=== PATIENT | male | born 1945 | race Caucasian/White ===

== ENCOUNTER 2017-10-28 11:40 | Outpatient (CLI) | payer MEDICARE, BC | END 2017-10-28 11:41 | disposition home or self-care (01) | LOC: BICRAD 11:40 | PROVIDERS: ATTEND Physician Assistant Surgical | DX: M54.2 Cervicalgia (principal); R51 Headache; M50.322 Other cervical disc degeneration at C5-C6 level; M99.81 Other biomechanical lesions of cervical region; M47.892 Other spondylosis, cervical region; M46.92 Unspecified inflammatory spondylopathy, cervical region; I65.22 Occlusion and stenosis of left carotid artery; J34.89 Other specified disorders of nose and nasal sinuses | CPT/HCPCS: 70553; 72050; 72141; 82565; A9579 ==

== ENCOUNTER 2023-08-13 08:26 | Day surgery (SDC) | payer MEDICARE, BC ==
[2023-08-05 10:27] VITALS: BMI 32.5
[2023-08-13] MEDS ORDERED: Rocuronium Bromide 10 MG/ML (10ML VIAL) ONE (10:04)
[2023-08-13] MEDS ORDERED: Lidocaine 1% PF 5 ML VIAL ONE (10:04)
[2023-08-13] MEDS ORDERED: PROPOFOL 20 ML ONE (10:04)
[2023-08-13] MEDS ORDERED: fentaNYL PF 100 MCG/2 ML SYRINGE ONE (10:04)
[2023-08-13] MEDS ORDERED: EPINEPHrine 1 MG/ML VIAL ONE (10:10)
[2023-08-13] MEDS ORDERED: Bupivacaine 0.25% HCL 30 ML VIAL ONE (10:10)
[2023-08-13] MEDS ORDERED: Sodium Chloride 0.9% 100 ML ONE (10:56)
[2023-08-13] MEDS ORDERED: CEFAZOLIN 2 GM VIAL ONE (10:56)
[2023-08-13] MEDS ORDERED: Labetalol HCl 100 MG/20 ML VIAL ONE (11:09)
[2023-08-13] MEDS ORDERED: hydrALAZINE 20 MG/ML VIAL ONE (11:47)
[2023-08-13] MEDS ORDERED: Ondansetron PF 4 MG/2 ML Vial ONE (12:14)
[2023-08-13] MEDS ORDERED: SUGAMMADEX SODIUM 200 MG/2 ML VIAL ONE (12:16)
[2023-08-13] MEDS ORDERED: fentaNYL 50 mcg/mL 1 mL Vial ONE (13:29)
[2023-08-13] MEDS ORDERED: Promethazine HCl 25 MG/ML VIAL ONE (15:17)
== END 2023-08-13 16:16 | disposition home or self-care (01) ==
LOC: SDC 08:26
PROVIDERS: ATTEND Surgery
PROC: 0YU64JZ Supplement Left Inguinal Region with Synthetic Substitute, Percutaneous Endoscopic Approach (ICD-10-PCS; principal; 2023-08-13)
DX: K40.90 Unilateral inguinal hernia, without obstruction or gangrene, not specified as recurrent (principal); E11.9 Type 2 diabetes mellitus without complications; E78.5 Hyperlipidemia, unspecified; I11.9 Hypertensive heart disease without heart failure; C61 Malignant neoplasm of prostate; Z79.84 Long term (current) use of oral hypoglycemic drugs; Z79.899 Other long term (current) drug therapy; Z98.52 Vasectomy status; Z90.89 Acquired absence of other organs; Z98.890 Other specified postprocedural states; Z98.41 Cataract extraction status, right eye
CPT/HCPCS: 49650; A4314; C1781; J0171; J0360; J0665; J2405; J2550; J2704; J3010; J3490